=== PATIENT | female | born 2000 | race Caucasian/White ===

== ENCOUNTER → 2023-05-05 | Outpatient (CLI) | payer OTHER | LOC: M PLALAB 15:11 | PROVIDERS: ATTEND Nurse Practitioner Family | DX: Z12.4 Encounter for screening for malignant neoplasm of cervix (principal) | CPT/HCPCS: 36415; G0123; G0463 ==

== ENCOUNTER → 2023-06-07 | Outpatient (REF) | payer OTHER | LOC: M SFHCWAGY 12:55 | PROVIDERS: ATTEND Nurse Practitioner Family | DX: R10.2 Pelvic and perineal pain (principal); R87.615 Unsatisfactory cytologic smear of cervix; Z12.4 Encounter for screening for malignant neoplasm of cervix ==

== ENCOUNTER → 2023-06-30 | Outpatient (CLI) | payer OTHER | LOC: M WHC 10:21 | PROVIDERS: ATTEND Nurse Practitioner Family | DX: R10.2 Pelvic and perineal pain (principal) ==

== ENCOUNTER → 2023-08-16 | Outpatient (CLI) | payer BC, OTHER | LOC: M WHC 10:08 | PROVIDERS: ATTEND Nurse Practitioner Family | DX: N83.201 Unspecified ovarian cyst, right side (principal) ==

== ENCOUNTER → 2024-04-23 | Outpatient (CLI) | payer BC | LOC: M LAB 14:49 | PROVIDERS: ATTEND Advanced Practice Midwife | DX: O20.9 Hemorrhage in early pregnancy, unspecified (principal); Z3A.00 Weeks of gestation of pregnancy not specified ==

== ENCOUNTER → 2024-05-29 | Outpatient (CLI) | payer BC | LOC: M PLALAB 11:58 | PROVIDERS: ATTEND Advanced Practice Midwife | DX: O20.9 Hemorrhage in early pregnancy, unspecified (principal) ==

== ENCOUNTER → 2024-07-24 | Outpatient (CLI) | payer BC ==
[2024-07-24 15:21] LABS: HEMOGLOBIN 12.9 g/dl (12.0-15.5); MEAN CORPUSCULAR HEMOGLOBIN 30.4 pg (27.0-33.0); MEAN CORPUSCULAR HGB CONC 33.1 g/dl (32.0-36.5); PLATELET COUNT, AUTOMATED 217 10^3/uL (150-450); RED BLOOD COUNT 4.24 10^6/uL (4.00-5.40); WHITE BLOOD COUNT 9.3 10^3/uL (4.0-10.0)
[2024-07-24 16:26] LABS: HIV 1&2 SCREEN NEGATIVE (NEGATIVE)
[2024-07-24 16:43] LABS: GC DNA AMPLIFICATION NEGATIVE (NEGATIVE)
[2024-07-24 19:12] LABS: HEPATITIS C VIRUS ABY INDEX 0.16 INDEX (<0.8)
== END ==
LOC: M PLALAB 11:40
PROVIDERS: ATTEND Obstetrics & Gynecology
DX: Z34.91 Encounter for supervision of normal pregnancy, unspecified, first trimester (principal); Z3A.00 Weeks of gestation of pregnancy not specified

== ENCOUNTER → 2024-09-11 | Outpatient (CLI) | payer BC, MEDICAID, OTHER, SELFPAY | LOC: M WHC 09:47 | PROVIDERS: ATTEND Obstetrics & Gynecology | DX: Z34.82 Encounter for supervision of other normal pregnancy, second trimester (principal) ==

== ENCOUNTER → 2024-09-22 | Outpatient (REF) | payer MEDICAID, OTHER ==
[2024-09-22 18:50] LABS: CREATININE,RANDOM URINE 31.1 MG/DL
[2024-09-22 18:51] LABS: TOTAL PROTEIN,RANDOM URINE < 6.0 MG/DL (0.0-14.0)
== END ==
LOC: M PLALAB 15:07
PROVIDERS: ATTEND Obstetrics & Gynecology
DX: Z87.59 Personal history of other complications of pregnancy, childbirth and the puerperium (principal)

== ENCOUNTER → 2024-10-30 | Outpatient (CLI) | payer OTHER ==
[2024-10-30 15:10] LABS: GLUCOSE CHALLENGE TEST 1 HOUR 100 MG/DL (LESS THAN 140)
[2024-10-30 15:28] LABS: HEMATOCRIT 36.6 % (36.0-47.0); HEMOGLOBIN 11.7 g/dl (12.0-15.5); MEAN CORPUSCULAR HEMOGLOBIN 31.5 pg (27.0-33.0); MEAN CORPUSCULAR VOLUME 98.7 fl (80.0-96.0); PLATELET COUNT, AUTOMATED 219 10^3/uL (150-450); RED BLOOD COUNT 3.71 10^6/uL (4.00-5.40); WHITE BLOOD COUNT 10.5 10^3/uL (4.0-10.0)
[2024-10-30 15:39] LABS: HIV 1&2 SCREEN NEGATIVE (NEGATIVE)
[2024-10-30 15:47] LABS: HEPATITIS C VIRUS ABY INDEX 0.11 INDEX (<0.8)
[2024-10-30 15:59] LABS: Trichomonas vaginalis (AMP) NOT DETECTED (NEGATIVE)
[2024-10-30 16:24] LABS: GC DNA AMPLIFICATION NEGATIVE (NEGATIVE)
== END ==
LOC: M PLALAB 11:30
PROVIDERS: ATTEND Obstetrics & Gynecology
DX: Z34.82 Encounter for supervision of other normal pregnancy, second trimester (principal)
CPT/HCPCS: 36415; 82950; 85027; 86780; 86803; 86850; 86900; 86901; 87389; 87661; 87810; 87850; J2790

== ENCOUNTER → 2024-11-15 | Outpatient (CLI) | payer OTHER | LOC: M WHC 10:26 | PROVIDERS: ATTEND Obstetrics & Gynecology | DX: Z36.2 Encounter for other antenatal screening follow-up (principal); Z3A.28 28 weeks gestation of pregnancy ==

== ENCOUNTER → 2024-12-14 | Outpatient (CLI) | payer OTHER ==
[2024-12-14 10:40] LABS: HEMATOCRIT 34.7 % (36.0-47.0); HEMOGLOBIN 11.5 g/dl (12.0-15.5); MEAN CORPUSCULAR HEMOGLOBIN 31.5 pg (27.0-33.0); MEAN CORPUSCULAR HGB CONC 33.1 g/dl (32.0-36.5); MEAN CORPUSCULAR VOLUME 95.1 fl (80.0-96.0); PLATELET COUNT, AUTOMATED 229 10^3/uL (150-450); RED BLOOD COUNT 3.65 10^6/uL (4.00-5.40); WHITE BLOOD COUNT 11.1 10^3/uL (4.0-10.0)
[2024-12-14 11:13] LABS: ALT/SGPT 10 U/L (7.0-40); AST/SGOT 13 U/L (<34); BILIRUBIN,TOTAL 0.3 MG/DL (0.3-1.2); CREATININE FOR GFR 0.69 MG/DL (0.55-1.30); GLOMERULAR FILTRATION RATE > 90.0 (>60); LDH LACTATE DEHYDROGENASE 162 U/L (120-246)
[2024-12-15 12:36] LABS: CREATININE,RANDOM URINE 31.5 MG/DL; TOTAL PROTEIN,RANDOM URINE < 6.0 MG/DL (0.0-14.0)
== END ==
LOC: M PLALAB 08:41
PROVIDERS: ATTEND Obstetrics & Gynecology
DX: O13.9 Gestational [pregnancy-induced] hypertension without significant proteinuria, unspecified trimester (principal)

== ENCOUNTER → 2024-12-28 | Outpatient (REF) | payer OTHER | LOC: M PLALAB 11:53 | PROVIDERS: ATTEND Advanced Practice Midwife | DX: Z36.85 Encounter for antenatal screening for Streptococcus B (principal); Z3A.36 36 weeks gestation of pregnancy ==

== ENCOUNTER 2025-01-11 08:04 | Inpatient (IN) | payer OTHER ==
[2025-01-11] VITALS (9 sets, daily range): BP systolic 128–155; BP diastolic 66–92
[~2025-01-11] VITALS: Ht 170.2 cm; Wt 128.0 kg
[2025-01-11] MEDS ORDERED: CARBOPROST TROMETHAMINE 250 MCG/ML AMP IM PRN (08:20)
[2025-01-11] MEDS ORDERED: LIDOCAINE 1% MDV 20ML VIAL INFIL PRN (08:20)
[2025-01-11] MEDS ORDERED: ceFAZolin SODIUM 2 GM in DEXTROSE 5% (D5W) ADV/MINI-BAG 50 ML IV STA (08:20)
[2025-01-11] MEDS ORDERED: ECOT81TA5 PO (08:27)
[2025-01-11] MEDS ORDERED: MULTTAB20 PO (08:27)
[2025-01-11] MEDS ORDERED: ALL10TAB2 PO (08:27)
[2025-01-11] MEDS ORDERED: HOME MED LIST COMPLETE! XX SCH (08:30)
[2025-01-11] MEDS: miSOPROStol 50MCG 1/2 TABLET PO PRN (09:30)
[2025-01-11 09:34] LABS: HEMOGLOBIN 11.1 g/dl (12.0-15.5); MEAN CORPUSCULAR HEMOGLOBIN 31.1 pg (27.0-33.0); MEAN CORPUSCULAR HGB CONC 33.6 g/dl (32.0-36.5); MEAN CORPUSCULAR VOLUME 92.4 fl (80.0-96.0); PLATELET COUNT, AUTOMATED 219 10^3/uL (150-450); RED BLOOD COUNT 3.57 10^6/uL (4.00-5.40); WHITE BLOOD COUNT 10.7 10^3/uL (4.0-10.0)
[2025-01-11 12:13] LABS: HIV 1&2 SCREEN NEGATIVE (NEGATIVE)
[2025-01-11 12:21] LABS: HEPATITIS C VIRUS ABY INDEX 0.06 INDEX (<0.8)
[2025-01-11] MEDS ORDERED: ceFAZolin SOD 1 GM in DEXTROSE 5% (D5W) ADV/MINI-BAG 50 ML IV SCH (16:20)
[2025-01-12] VITALS (38 sets, daily range): BP systolic 108–149; BP diastolic 54–80
[2025-01-12] MEDS: OXYTOCIN DRIP 30 UNITS in IV 1 EA IV SCH (08:31)
[2025-01-12] MEDS: ceFAZolin SODIUM 2 GM in DEXTROSE 5% (D5W) ADV/MINI-BAG 50 ML IV STA (08:31)
[2025-01-12] MEDS: LR 1,000 ML IV SCH (08:31)
[2025-01-12] MEDS: ceFAZolin SOD 1 GM in DEXTROSE 5% (D5W) ADV/MINI-BAG 50 ML IV SCH (16:25)
[2025-01-12] MEDS ORDERED: ONDANSETRON 4MG 2ML VIAL IV PRN (18:35)
[2025-01-12] MEDS ORDERED: LR 500 ML IV PRN (18:35)
[2025-01-12] MEDS ORDERED: EPIDURAL/PCA KEYS XX PRN (18:35)
[2025-01-12] MEDS ORDERED: NALOXONE INJ 0.4MG/1ML VIAL IV PRN (18:35)
[2025-01-12] MEDS ORDERED: diphenhydrAMINE 50MG/ML VIAL IV PRN (18:35)
[2025-01-12] MEDS ORDERED: ePHEDrine SULFATE 25 MG/5 ML(5MG/ML) SYRINGE IVP PRN (18:35)
[2025-01-12] MEDS: FENTANYL/ROPIVACAINE/NACL BAG 100 ML EPIDURAL SCH (19:39)
[2025-01-12] MEDS: CALCIUM CARBONATE 500 MG CHEW U/D PO ONE (21:36)
[2025-01-12] MEDS: OXYTOCIN DRIP 30 UNITS in IV 1 EA IV PRN (23:39)
[2025-01-12] MEDS: TRANEXAMIC ACID INJection 1,000 MG in NS 100 ML IV PRN (23:39)
[2025-01-13] VITALS (31 sets, daily range): BP systolic 81–143; BP diastolic 37–76; O2SAT 96–97
[2025-01-13] MEDS: METHYLERGONOVINE MALEATE 0.2MG/ML 1ML VIAL IM PRN (00:42)
[2025-01-13] MEDS ORDERED: DIBUCAINE 1% OINTMENT 30GM TOP PRN (01:50)
[2025-01-13] MEDS ORDERED: ANUSOL HC CREAM 30GM TOP PRN (01:50)
[2025-01-13] MEDS ORDERED: IBUPROFEN 600MG TAB PO PRN (01:50)
[2025-01-13] MEDS ORDERED: METHYLERGONOVINE MALEATE 0.2 MG TAB PO PRN (01:50)
[2025-01-13] MEDS ORDERED: MOM 30ML SUSPENSION UDC PO PRN (01:50)
[2025-01-13] MEDS ORDERED: CALCIUM CARBONATE 500 MG CHEW U/D PO PRN (01:50)
[2025-01-13] MEDS ORDERED: ACETAMINOPHEN 325 MG TAB PO PRN (01:50)
[2025-01-13] MEDS: ceFAZolin SOD 1 GM in DEXTROSE 5% (D5W) ADV/MINI-BAG 50 ML IV ONE (02:12)
[2025-01-13 06:42] LABS: HEMATOCRIT 30.6 % (36.0-47.0); HEMOGLOBIN 10.3 g/dl (12.0-15.5); MEAN CORPUSCULAR HEMOGLOBIN 30.8 pg (27.0-33.0); MEAN CORPUSCULAR HGB CONC 33.7 g/dl (32.0-36.5); MEAN CORPUSCULAR VOLUME 91.6 fl (80.0-96.0); PLATELET COUNT, AUTOMATED 225 10^3/uL (150-450); RED BLOOD COUNT 3.34 10^6/uL (4.00-5.40)
[2025-01-13] MEDS: DOCUSATE SODIUM 100MG CAPSULE PO PRN (08:18)
[2025-01-13] MEDS: FERROUS SULFATE 325MG TAB PO SCH (08:18)
[2025-01-13] MEDS: PRENATAL VITAMINS CHEWABLE TABLET PO SCH (08:18)
[2025-01-13] MEDS: IBUPROFEN 800 MG TAB PO PRN (08:19)
[2025-01-13] MEDS: RHOGAM 300MCG (1500IU) INJ IM SCH (11:48)
[2025-01-13] MEDS: ACETAMINOPHEN 500 MG TAB PO PRN (14:09)
[2025-01-14 06:00] VITALS: BP 95/49; O2SAT 97
[2025-01-15] MEDS ORDERED: MEASLES,MUMPS,RUBELLA VACCINE INJ (MMR-II) SC.IMMUN ONE (09:00)
== END 2025-01-14 14:44 | disposition home or self-care (01) | DRG 541 ==
LOC: M LDI 08:04 → M OBS 01-13 03:54
PROVIDERS: ADMIT Specialist; ATTEND Advanced Practice Midwife
PROC: 3E0P7GC Introduction of Other Therapeutic Substance into Female Reproductive, Via Natural or Artificial Opening (ICD-10-PCS; principal; 2025-01-11)
PROC: 3E033VJ Introduction of Other Hormone into Peripheral Vein, Percutaneous Approach (ICD-10-PCS; 2025-01-11)
PROC: 10D17Z9 Manual Extraction of Products of Conception, Retained, Via Natural or Artificial Opening (ICD-10-PCS; 2025-01-13)
PROC: 10E0XZZ Delivery of Products of Conception, External Approach (ICD-10-PCS; 2025-01-13)
DX: O13.4 Gestational [pregnancy-induced] hypertension without significant proteinuria, complicating childbirth (principal); O99.824 Streptococcus B carrier state complicating childbirth; Z37.0 Single live birth; Z3A.37 37 weeks gestation of pregnancy; Z88.0 Allergy status to penicillin; Z88.2 Allergy status to sulfonamides; O73.0 Retained placenta without hemorrhage; O69.82X0 Labor and delivery complicated by other cord entanglement, without compression, not applicable or unspecified

== ENCOUNTER → 2025-06-05 | Outpatient (REF) | payer MEDICAID, OTHER ==
[~2025-06-05] MED LIST: ALL10TAB2 PO; ECOT81TA5 PO; MULTTAB20 PO
[2025-06-07 15:42] LABS: HPV APTIMA Not Detected (Not Detected)
== END ==
LOC: M SFHCWAGY 18:14
PROVIDERS: ATTEND Advanced Practice Midwife
DX: Z12.4 Encounter for screening for malignant neoplasm of cervix (principal)